=== PATIENT | female | born 1945 | race African-American/Black ===

== ENCOUNTER 2017-11-07 19:13 | Emergency (ER) | END 2017-11-07 21:46 | disposition home or self-care (01) ==

== ENCOUNTER 2018-04-11 08:53 | Emergency (ER) | payer MEDICARE, MEDICAID ==
[~2018-04-11] VITALS: Wt 56.1 kg
[~2018-04-11 08:53] MED LIST: CEPH500C PO; HYDR-1666
[2018-04-11 08:56] VITALS: BP 136/76; PULSE 73; RESP 17
[2018-04-11] MEDS ORDERED: IBUP-1542 PO (10:02)
[2018-04-11] MEDS ORDERED: D-ME118S24 PO (10:02)
--- NOTE | 2018-04-11 18:26 | ERD ---
ER Documentation Chief Complaint Chief Complaint BODYACHES, COUGH, ONSET 4 DAYS HPI 72-year-old female presents for body cough times 4 days. He states that she gets epigastric abdominal pain with coughing. The pain is noted to be 7 out of 10. She tried Robitussin and DayQuil at home without relief. Cough is prod uctive of mucus. She denies fevers or sore throat. No history of smoking. Denies any headache or sinus pain. ROS All systems reviewed and are negative except as per history of present illness. Medications Home Meds Active Scripts D-Methorphan Hb/P-Epd HCl/Bpm (Yoclpwwnti-Pakmupulche-Er Syr) 118 Ml Syrup, 5 ML PO Q4H PRN for COUGH, #1 BOTTLE Prov:LUJANJAIR 04/11/18 Ibuprofen* (Motrin*) 600 Mg Tab, 600 MG PO Q6H PRN for PAIN AND OR ELEVATED TEMP, #30 TAB Prov:JAIR LUJAN 04/11/18 Cephalexin* (Cephalexin*) 500 Mg Capsule, 500 MG PO BID, #14 CAP Prov:ALBERTO HOLDEN PA-C 11/07/17 Reported Medications Hydrocodone Bit/Acetaminophen (Vicodin 5/500 Tablet) 1 Tab Tablet 01/26/10 Allergies Allergies: Coded Allergies: Penicillins (Verified Allergy, Intermediate, rashes/hives, 04/11/18) PMhx/Soc History of Surgery: Yes (right knee sx) Anesthesia Reaction: No Hx Neurological Disorder: No Hx Respiratory Disorders: No Hx Cardiac Disorders: Yes (htn) Hx Psychiatric Problems: No Hx Miscellaneous Medical Probl: No Hx Alcohol Use: Yes (occassional) Hx Substance Use: No Hx Tobacco Use: No Smoking Status: Never smoker Physical Exam Vitals Vital Signs Date Temp Pulse Resp B/P (MAP) Pulse Ox O2 O2 Flow FiO2 Time Delivery Rate 04/11/18 98.1 73 17 136/76 100 08:56 (96) Physical Exam Const: No acute distress Head: Atraumatic Eyes: Normal Conjunctiva ENT: Normal External Ears, bilateral tympanic membrane intact without eryth guru or bulging noted, nose and Mouth examination normal, no tonsillar swelling or exudate noted Neck: Full range of motion. No meningismus. Resp: Clear to auscultation bilaterally, no wheezing, rales, rhonchi Cardio: Regular rate and rhythm, no murmurs Skin: No petechiae or rashes Ext: No cyanosis, or edema Neur: Awake and alert Psych: Normal Mood and Affect Procedures/MDM Medical Decision Making: Differential diagnosis includes but not limited to upper respiratory infection, pneumonia, sepsis, meningitis. Patient appeared well on physical examination, nontoxic appearing. Lungs were clear to auscultation bilaterally. There is low suspicion for pneumonia, sepsis, meningitis. Chest x-ray was unremarkable for acute pathology. Patient likely has an upper respiratory infection, likely viral. Therefore antibiotics not indicated. Discussed symptomatic treatment with patient who agrees with plan. Patient given prescription for supportive medications. Patient advised to follow up with PCP in 1-2 days. Patient advised to return to ED for new or worsening symptoms. Patient stable on discharge from the ED. Disclaimer: Inadvertent spelling and grammatical errors are likely due to EHR/dictation software use and do not reflect on the overall quality of patient care. Also, please note that the electronic time recorded on this note does not necessarily reflect the actual time of the patient encounter. Departure Diagnosis: Primary Impression: Upper respiratory infection Condition: Fair Patient Instructions: Preventing Common Respiratory Infections Referrals: JAIR GARCIA MD (PCP) Additional Instructions: Call your primary care doctor TOMORROW for an appointment during the next 1-2 days.See the doctor sooner or return here if your condition worsens before your appointment time. JAIR LUJAN DO Apr 11, 2018 18:26
== END 2018-04-11 11:04 | disposition home or self-care (01) ==
LOC: FTE 08:53
DX: J06.9 Acute upper respiratory infection, unspecified (principal); I10 Essential (primary) hypertension
CPT/HCPCS: 71046

== ENCOUNTER 2018-10-25 10:09 | Emergency (ER) | payer MEDICARE, MEDICAID ==
[~2018-10-25] VITALS: Wt 60.0 kg
[~2018-10-25 10:09] MED LIST changes: +CARB-155 LEFT EAR; +D-ME118S24 PO; +IBUP-1542 PO; +OFLO5DRO46 LEFT EYE
[2018-10-25 10:11] VITALS: BP 140/78; PULSE 89; RESP 18
--- NOTE | 2018-10-25 11:52 | ERD ---
ER Documentation Chief Complaint Chief Complaint LEFT ERA PAIN,GILMAN HPI 72-year-old female presenting with fullness to her left ear. Patient has been using neomycin and polymixin x 7 days with no alleviation. Medical history: HTN. Allergy to PCN. Surgery: denies, Social history: denies ROS All systems reviewed and are negative except as per history of present illness. Medications Home Meds Active Scripts Carbamide Peroxide* (Debrox*) 6.5% -15 Ml Drops, 10 DROP LEFT EAR BID, #1 EA Prov:ROSMERY KOWALSKI PA-C 10/25/18 Ofloxacin* (Ocuflox*) 0.3%-5 Ml Ophth Drops, 1 DROP LEFT EYE QID, #1 BOTTLE Prov:ROSMERY KOWALSKI PA-C 10/25/18 D-Methorphan Hb/P-Epd HCl/Bpm (Hilpcwexij-Cdhdtvufoal-Wy Syr) 118 Ml Syrup, 5 ML PO Q4H PRN for COUGH, #1 BOTTLE Prov:JAIR LUJAN DO 04/11/18 Ibuprofen* (Motrin*) 600 Mg Tab, 600 MG PO Q6H PRN for PAIN AND OR ELEVATED TEMP, #30 TAB Prov:JAIR LUJAN DO 04/11/18 Cephalexin* (Cephalexin*) 500 Mg Capsule, 500 MG PO BID, #14 CAP Prov:ALBERTO HOLDEN PA-C 11/07/17 Reported Medications Hydrocodone Bit/Acetaminophen (Vicodin 5/500 Tablet) 1 Tab Tablet 01/26/10 Allergies Allergies: Coded Allergies: Penicillins (Verified Allergy, Intermediate, rashes/hives, 04/11/18) PMhx/Soc History of Surgery: Yes (right knee sx) Anesthesia Reaction: No Hx Neurological Disorder: No Hx Respiratory Disorders: No Hx Cardiac Disorders: Yes (HTN) Hx Psychiatric Problems: No Hx Miscellaneous Medical Probl: No Hx Alcohol Use: Yes (OCCASSIONAL) Hx Substance Use: No Hx Tobacco Use: No FmHx Family History: No diabetes, No coronary disease, No other Physical Exam Vitals Vital Signs Date Temp Pulse Resp B/P (MAP) Pulse Ox O2 O2 Flow FiO2 Time Delivery Rate 10/25/18 97.8 89 18 140/78 99 10:11 (98) Physical Exam GENERAL: The patient is well-appearing, well-nourished, in no acute distress HEENT: Atraumatic. Conjunctivae are pink. Pupils equal, round, and reactive to light. There is no scleral icterus. Tympanic membranes clear bilaterally. Oropharynx clear. Cerumen to left ear. No tragal tenderness NECK: C-spine is soft and supple. There is no meningismus. There is no cervical lymphadenopathy. CHEST: Clear to auscultation bilaterally. There are no rales, wheezes or rhonch i. HEART: Regular rate and rhythm. No murmurs, clicks, rubs or gallops. Procedures/MDM ER Course: Cerumen lavage done in ER MDM: 72-year-old female presenting with cerumen to left ear. Large amounts of fluid is used to lavage the left ear with no complete removal of cerumen so patient is recommended to use Debrox at home for the next 4 days and return. I will treat for antibiotic drops to prophylax against infection. No tragal tenderness no mastoid tenderness. Patient is discharged with strict ER precautions. All questions answered at discharge Departure Diagnosis: Primary Impression: Left ear pain Condition: Stable Patient Instructions: Cerumen Impaction, Home Care, Otitis Externa (Child) Referrals: JAIR GARCIA MD (PCP) Additional Instructions: FOLLOW UP WITH YOUR PRIMARY CARE PHYSICIAN TOMORROW.Return to this facility if you are not improving as expected. ROSMERY KOWALSKI PA-C Oct 25, 2018 11:52
== END 2018-10-25 12:18 | disposition home or self-care (01) ==
LOC: FTE 10:09
DX: H61.22 Impacted cerumen, left ear (principal); I10 Essential (primary) hypertension